=== PATIENT | male | born 1975 | race American Indian/Alaskan Native ===

== ENCOUNTER 2017-03-04 17:46 | Emergency (ER) | payer OTHER ==
[2017-03-04 17:47] VITALS: BMI 22.9
[2017-03-04 18:00] VITALS: BP 117/73; PULSE 79; RESP 18; TEMP 98; O2SAT 96
--- NOTE | 2017-03-04 18:02 | C.PDOC ---
History Of Present Illness 41 yo male, presents with left sided back pain, he has had for last 2 weeks. pain worse to left lower back, going down to left leg. pt states he does not recall trauma. pt states "similar to previous back pain", he had 1 year ago. no urinary changes, hematuria, saddle anesthesia, numbness, or other complaints. Time Seen by Provider: 03/04/17 17:54 Chief Complaint (Nursing): Back Pain Past Medical History Reviewed: Historical Data, Nursing Documentation, Vital Signs Vital Signs: Last Vital Signs Temp 98 F 03/04/17 17:48 Pulse 79 03/04/17 17:48 Resp 18 03/04/17 17:48 BP 117/73 03/04/17 17:48 Pulse Ox 96 03/04/17 18:03 Family History: States: Unknown Family Hx - Social History Hx Tobacco Use: No Hx Alcohol Use: Yes Hx Substance Use: No - Immunization History Hx Tetanus Toxoid Vaccination: No Hx Influenza Vaccination: No Hx Pneumococcal Vaccination: No Review Of Systems Musculoskeletal: Positive for: Back Pain Physical Exam - Physical Exam Appears: Well, No Acute Distress Skin: Normal Color, Warm, Dry Eye(s): bilateral: Normal Inspection, PERRL, EOMI Nose: Normal Throat: Normal Neck: Normal Cardiovascular: Rhythm Regular Respiratory: Normal Breath Sounds Gastrointestinal/Abdominal: Normal Exam, Soft, No Tenderness, No Guarding, No Rebound Back: Normal Inspection, No CVA Tenderness, No Vertebral Tenderness, Paraspinal Tenderness, Straight Leg Raising ((+)left sided) Extremity: Normal ROM ED Course And Treatment O2 Sat by Pulse Oximetry: 96 Medical Decision Making Medical Decision Making: suspected sciatica/msk pain. no saddle anesthesia, no h/o ofurinary symptoms, bowel incontinence. 630: ua neg for infection/blood (stone less likely), xr neg as read by me. advise outpt f/u and return precautions Disposition - Disposition Referrals: [facility] [Outside] [facility] [Outside] José Miguel Samuel MD [Non-Staff] - Disposition: HOME/ ROUTINE Disposition Time: 18:32 Condition: STABLE Additional Instructions: please follow up with your doctor/specialist. return to er with worsening symptoms or concerns. Prescriptions: Cyclobenzaprine [Cyclobenzaprine HCl] 10 mg PO TID PRN #21 tab PRN Reason: Muscle Spasm Naproxen [Naprosyn] 500 mg PO BID PRN #14 tablet PRN Reason: Pain, Mild (1-3) Instructions: Acute Low Back Pain (ED) Forms: [employer] ([place]) - Clinical Impression Clinical Impression: Low back pain
[2017-03-04 18:23] LABS: RBC URINE 1 /hpf (0-3); URINE BACTERIA OCC (<OCC); URINE BILIRUBIN NEGATIVE (NEGATIVE); URINE BLOOD NEGATIVE (NEGATIVE); URINE COLOR Yellow (YELLOW); URINE GLUCOSE (UA) NORMAL (Normal); URINE KETONE NEGATIVE (NEGATIVE); URINE LEUKOCYTE ESTERASE NEG Leu/uL (Negative); URINE PROTEIN 1+ mg/dL (NEGATIVE); URINE UROBILINOGEN NORMAL mg/dL (0.2-1.0); WBC URINE 1 /hpf (0-5)
--- NOTE | 2017-03-05 08:14 | RAD ---
PROCEDURE: Radiographs of the Lumbar Spine. HISTORY: back pain COMPARISON: No prior. FINDINGS: BONES: Normal alignment. No listhesis. No fracture. DISC SPACES: Unremarkable. OTHER FINDINGS: Moderate stool retention IMPRESSION: No lumbar spine pathology noted. Incidentally noted is moderate stool retention
== END 2017-03-04 18:44 | disposition home or self-care (01) ==
LOC: C.ER 17:46
DX: M54.5 Low back pain (principal)
CPT/HCPCS: 72100; 81001; 96372; 99284; J1885

== ENCOUNTER 2017-03-11 07:50 | Observation (INO) | payer OTHER ==
[2017-03-11 07:51] VITALS: BMI 22.9
[2017-03-11] MEDS ORDERED: diaZEpam 10 mg/2 ml Inj IVP ONE (08:38)
[2017-03-11] MEDS ORDERED: Sodium Chloride 0.9% 500 ML IV ONE (08:38)
[2017-03-11] MEDS ORDERED: Sodium Chloride 0.9% 1,000 ML ONE (08:43)
[2017-03-11] MEDS ORDERED: diaZEpam 10 mg/2 ml Inj ONE (08:44)
--- NOTE | 2017-03-11 08:47 | C.PDOC ---
History Of Present Illness 41 y/o male, with PMHx of intermittent back pain, presents to ED for re- evaluation of lower back pain for the past week. Pt states that pain is progressively getting worse, and is described as mostly left sided lower back pain radiating down to buttock and left leg. Pt admits to being seen here 1 week ago for similar symptoms and was sent home with Rx of Naproxen and Flexeril which pt has been taking without any improvement. Pt denies fall, trauma, fever, chills, abdominal pain, nausea, vomiting, diarrhea, bowel or bladder incontinence/retention, paresthesias, focal weakness, sensory deficit, gait dysfunction, hematuria or dysuria. Time Seen by Provider: 03/11/17 08:07 Chief Complaint (Nursing): Back Pain History Per: Patient History/Exam Limitations: no limitations Onset/Duration Of Symptoms: Days (1 week) Current Symptoms Are (Timing): Still Present Quality Of Discomfort: "Pain" Previous Symptoms: Back Pain. denies: Prior Injury Associated Symptoms: None. denies: Incontinence, New Weakness, New Numbness Exacerbating Factor(s): Nothing Recent travel outside of the [place]: No Additional History Per: Patient Past Medical History Reviewed: Historical Data, Nursing Documentation, Vital Signs Vital Signs: Last Vital Signs Temp 97.5 F L 03/11/17 12:13 Pulse 64 03/11/17 12:13 Resp 18 03/11/17 12:13 BP 111/64 03/11/17 12:13 Pulse Ox 99 03/11/17 12:37 Family History: States: Unknown Family Hx - Social History Hx Tobacco Use: No Hx Alcohol Use: Yes Hx Substance Use: No - Immunization History Hx Tetanus Toxoid Vaccination: No Hx Influenza Vaccination: No Hx Pneumococcal Vaccination: No Review Of Systems Except As Marked, All Systems Reviewed And Found Negative. Constitutional: Negative for: Fever, Chills Cardiovascular: Negative for: Chest Pain, Palpitations Respiratory: Negative for: Shortness of Breath Gastrointestinal: Negative for: Nausea, Vomiting, Abdominal Pain Genitourinary: Negative for: Dysuria, Frequency, Hematuria Musculoskeletal: Positive for: Back Pain, Leg Pain (left) Neurological: Negative for: Weakness, Numbness Physical Exam - Physical Exam Appears: Non-toxic, No Acute Distress Skin: Normal Color, Warm, Dry Head: Atraumatic, Normacephalic Eye(s): bilateral: Normal Inspection Oral Mucosa: Moist Neck: Normal ROM, Supple Chest: Symmetrical Cardiovascular: Rhythm Regular, No Murmur Respiratory: Normal Breath Sounds, No Accessory Muscle Use, No Rales, No Rhonchi , No Wheezing Gastrointestinal/Abdominal: Soft, No Tenderness Back: No CVA Tenderness, No Vertebral Tenderness, Paraspinal Tenderness (left lumbar) Extremity: Normal ROM, No Tenderness, No Deformity Extremity: Bilateral: Atraumatic, Normal Color And Temperature, Normal ROM Neurological/Psych: Oriented x3, Normal Speech, Normal Cognition ED Course And Treatment O2 Sat by Pulse Oximetry: 99 (on RA) Pulse Ox Interpretation: Normal - CT Scan/US Lumbar spine MRI Other Rad Studies (CT/US): Read By Radiologist, Radiology Report Reviewed CT/US Interpretation: MRI lumbar spine. History: Left lumbar radiculopathy. Comparison: None available. Technique: Multi-echo multiplanar sequences were performed through the lumbar spine without the use of intravenous contrast. Findings: Heterogeneity of the visualized marrow with patchy decreased T1 signal suggestive for hematopoietic marrow reconversion. Spine alignment is maintained. Vertebral body heights are preserved. Disc desiccation at the L4- 5 and L5-S1 levels. Conus medullaris ends at approximately the L1 vertebral body level. T12-L1: No significant disc herniation, spinal canal stenosis, or neural foraminal narrowing. L1-2: No significant disc herniation, spinal canal stenosis, or neural foraminal narrowing. L2-3: Annular tear. Small broad- based posterior disc bulge, eccentric to the left. Moderate ligamentum flavum and facet hypertrophy. Mild left-sided spinal canal stenosis. Mild left neural foraminal narrowing. L3-4: Moderate-sized broad-based posterior disc bulge. In addition, extending superiorly on the left along the posterior inferior aspect of the L3 vertebral body, contiguous with the disc, there is an ovoid focus of more focally decreased T1 signal measuring 1.2 x 0.8 x 1.1 centimeters causing compression of the left anterior thecal sac as well as extension into the left neural foramen. There is apparent involvement with the left intrathecal and possibly left exiting nerve roots at this level. This is of uncertain clinical etiology and may represent focal sequestered disc fragment versus additional etiology. Correlation with contrast-enhanced MRI may be helpful if clinically indicated to exclude additional etiology. Moderate ligamentum flavum and facet hypertrophy. Moderate left-sided spinal canal stenosis. Moderate left neural foraminal narrowing. Mild right neural foraminal narrowing. L4-5: No significant disc herniation. Mild ligamentum flavum and facet hypertrophy. Mild bilateral neural foraminal narrowing. L5-S1: Small broad-based posterior disc bulge contacting the anterior thecal sac. Mild ligamentum flavum and facet hypertrophy. Mild to moderate bilateral neural foraminal narrowing. Impression: 1. At the L3-4 level, there is a moderate- sized broad-based posterior disc bulge. In addition, extending superiorly on the left along the posterior inferior aspect of the L3 vertebral body, contiguous with the disc, there is an ovoid focus of more focally decreased T1 signal measuring 1.2 x 0.8 x 1.1 centimeters causing compression of the left anterior thecal sac as well as extension into the left neural foramen. There is apparent involvement with the left intrathecal and possibly left exiting nerve roots at this level. This is of uncertain clinical etiology and may represent focal sequestered disc fragment versus additional etiology. Correlation with contrast-enhanced MRI may be helpful if clinically indicated to exclude additional etiology such as a lesion. Moderate ligamentum flavum and facet hypertrophy. Moderate left-sided spinal canal stenosis. Moderate left neural foraminal narrowing. Mild right neural foraminal narrowing. 2. At the L2 -3 level, there is an annular tear. In addition, there is a small broad-based posterior disc bulge, eccentric to the left. Moderate ligamentum flavum and facet hypertrophy. Mild left-sided spinal canal stenosis. Mild left neural foraminal narrowing. Additional findings as above. Progress Note: Lumbar spine MRI ordered and reviewed. Pt was given Valium, Solu- Medrol, and IV fluids. On re-evaluation, patient is resting comfortably, reports improvement of back pain. No fever, no bony tenderness, no numbness, no weakness, or abdominal pain. Patient is ambulatory in the emergency department with no signs of discomfort. ED OBSERVATION Discharge: Yes Date of observation admission: 03/11/17 Time of observation admission: 08:40 - Observation admission statement Patient is being placed in observation because:: Severe lower back pain, lumbar radiculopathy - Goals of Observation Goals of observation are:: Imaging, analgesics, neuro re-check - Progress Note Progress Note: 03/11/17 Pt was initially treated with steroids, benzo, hydration with IVF. At 9:29, pt was called for imaging MRI of L-spine. Pt was sent back, unable tolerate due to severe pain. Dilaudid, Tramadol given. At 10:10, pt came back, able to complete imaging. Pt reports, mod improvement in pain. ABd: benign. Neuorlogicaly intact. At 11:58, pt resting comfortably, not in any apparent distress. Sleeping, easily arousable. Neuorlogicaly intact. At 13:35, pt reports, "feels better". Afebrile, hemodynamicaly stable. non-toxic. Ambulatory in Ed with stable gait. Abd: benign. back: (-) CVA tenderness. Neurologicaly intact. MRI reports review and c/w lumbar radiculopathy. Pt has clinical findings c/w lumbar radiculopathy. Pt advised and ref. to f/u with PMD, PM in 2-3 days for re-eval. Disposition Counseled Patient/Family Regarding: Studies Performed, Diagnosis, Need For Followup, Rx Given - Disposition Disposition: HOME/ ROUTINE Disposition Time: 13:37 Condition: STABLE - Clinical Impression Clinical Impression: Lumbar radiculopathy, acute - PA / LIFT OPERATOR / Resident Statement MD/DO has reviewed & agrees with the documentation as recorded. - Scribe Statement The provider has reviewed the documentation as recorded by the Kiibleoncio Urbina All medical record entries made by the Kristopher were at my direction and personally dictated by me. I have reviewed the chart and agree that the record accurately reflects my personal performance of the history, physical exam, medical decision making, and the department course for this patient. I have also personally directed, reviewed, and agree with the discharge instructions and disposition.
[2017-03-11] MEDS ORDERED: HYDROmorphone 1 mg/ml ISec IVP STA (09:58)
[2017-03-11] MEDS ORDERED: HYDROmorphone 1 mg/ml ISec ONE (09:59)
--- NOTE | 2017-03-11 11:12 | MRI ---
MRI lumbar spine History: Left lumbar radiculopathy. Comparison: None available. Technique: Multi-echo multiplanar sequences were performed through the lumbar spine without the use of intravenous contrast. Findings: Heterogeneity of the visualized marrow with patchy decreased T1 signal suggestive for hematopoietic marrow reconversion. Spine alignment is maintained. Vertebral body heights are preserved. Disc desiccation at the L4-5 and L5-S1 levels. Conus medullaris ends at approximately the L1 vertebral body level. T12-L1: No significant disc herniation, spinal canal stenosis, or neural foraminal narrowing. L1-2: No significant disc herniation, spinal canal stenosis, or neural foraminal narrowing. L2-3: Annular tear. Small broad-based posterior disc bulge, eccentric to the left. Moderate ligamentum flavum and facet hypertrophy. Mild left-sided spinal canal stenosis. Mild left neural foraminal narrowing. L3-4: Moderate-sized broad-based posterior disc bulge. In addition, extending superiorly on the left along the posterior inferior aspect of the L3 vertebral body, contiguous with the disc, there is an ovoid focus of more focally decreased T1 signal measuring 1.2 x 0.8 x 1.1 centimeters causing compression of the left anterior thecal sac as well as extension into the left neural foramen. There is apparent involvement with the left intrathecal and possibly left exiting nerve roots at this level. This is of uncertain clinical etiology and may represent focal sequestered disc fragment versus additional etiology. Correlation with contrast-enhanced MRI may be helpful if clinically indicated to exclude additional etiology. Moderate ligamentum flavum and facet hypertrophy. Moderate left-sided spinal canal stenosis. Moderate left neural foraminal narrowing. Mild right neural foraminal narrowing. L4-5: No significant disc herniation. Mild ligamentum flavum and facet hypertrophy. Mild bilateral neural foraminal narrowing. L5-S1: Small broad-based posterior disc bulge contacting the anterior thecal sac. Mild ligamentum flavum and facet hypertrophy. Mild to moderate bilateral neural foraminal narrowing. Impression: 1. At the L3-4 level, there is a moderate-sized broad-based posterior disc bulge. In addition, extending superiorly on the left along the posterior inferior aspect of the L3 vertebral body, contiguous with the disc, there is an ovoid focus of more focally decreased T1 signal measuring 1.2 x 0.8 x 1.1 centimeters causing compression of the left anterior thecal sac as well as extension into the left neural foramen. There is apparent involvement with the left intrathecal and possibly left exiting nerve roots at this level. This is of uncertain clinical etiology and may represent focal sequestered disc fragment versus additional etiology. Correlation with contrast-enhanced MRI may be helpful if clinically indicated to exclude additional etiology such as a lesion. Moderate ligamentum flavum and facet hypertrophy. Moderate left-sided spinal canal stenosis. Moderate left neural foraminal narrowing. Mild right neural foraminal narrowing. 2. At the L2-3 level, there is an annular tear. In addition, there is a small broad-based posterior disc bulge, eccentric to the left. Moderate ligamentum flavum and facet hypertrophy. Mild left-sided spinal canal stenosis. Mild left neural foraminal narrowing. Additional findings as above.
[2017-03-11 12:13] VITALS: BP 111/64; PULSE 64; RESP 18; TEMP 97.5
[2017-03-11 12:24] VITALS: O2SAT 99
== END 2017-03-11 13:20 | disposition home or self-care (01) ==
LOC: C.ER 07:50 → C.9OBSV 08:40
PROVIDERS: ADMIT Emergency Medicine; ATTEND Emergency Medicine
DX: M54.16 Radiculopathy, lumbar region (principal)
CPT/HCPCS: 72148; 96361; 96374; 96375; 99285; G0378; J1170; J1885; J2930; J3360; J7040

== ENCOUNTER 2017-03-12 14:01 | Emergency (ER) | payer OTHER ==
[2017-03-12 14:02] VITALS: BMI 22.9
--- NOTE | 2017-03-12 14:34 | C.PDOC ---
History Of Present Illness NEW ONSET INTRACT HICCUPS SINCE YEST. NO PAIN, PRIOR HO SAME. PS UNABLE TO SLEEP DUE TO HICCUPS. CO RECUR L SCIATICA LAST NIGHT. HO PRIOR SIM SX. +MRI 03/11. 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 RADIATION POST THIGH. EXAM MILD DIST NONTOXIC ACTIVE HICCUPS NARD ABD NEG BACK LIMITED ROM DUE TO PAIN NEURO INTACT Time Seen by Provider: 03/12/17 14:25 Chief Complaint (Nursing): Back Pain History Per: Patient History/Exam Limitations: no limitations Onset/Duration Of Symptoms: Days Current Symptoms Are (Timing): Still Present Reports Recently: Seen In ED Recent travel outside of the [place]: No Past Medical History Reviewed: Historical Data, Nursing Documentation, Vital Signs Vital Signs: Last Vital Signs Temp 98.4 F 03/12/17 14:03 Pulse 84 03/12/17 14:03 Resp 20 03/12/17 14:03 BP Pulse Ox 99 03/12/17 16:09 - Medical History PMH: No Chronic Diseases Family History: States: Unknown Family Hx - Social History Hx Tobacco Use: No Hx Alcohol Use: Yes Hx Substance Use: No - Immunization History Hx Tetanus Toxoid Vaccination: No Hx Influenza Vaccination: No Hx Pneumococcal Vaccination: No Review Of Systems Except As Marked, All Systems Reviewed And Found Negative. Constitutional: Negative for: Fever, Chills Cardiovascular: Negative for: Chest Pain Respiratory: Negative for: Cough, Shortness of Breath, Wheezing Musculoskeletal: Positive for: Back Pain Skin: Negative for: Rash Neurological: Negative for: Weakness, Numbness, Dizziness Physical Exam - Physical Exam Appears: Non-toxic, Other (MILD DISTRESS; ACTIVE HICCUPS NARD) Skin: Normal Color, Warm, Dry Head: Atraumatic, Normacephalic Oral Mucosa: Moist Neck: Normal ROM, No Midline Cervical Tenderness, No Paracervical Tenderness, Supple Chest: Symmetrical, No Tenderness Cardiovascular: Rhythm Regular Respiratory: Normal Breath Sounds, No Rales, No Rhonchi, No Wheezing Gastrointestinal/Abdominal: Soft, No Tenderness, No Guarding, No Rebound Back: Decreased ROM (DUE TO PAIN ) Extremity: Normal ROM, Capillary Refill (< 2 SEC.) Neurological/Psych: Other (NEURO INTACT) ED Course And Treatment O2 Sat by Pulse Oximetry: 99 (RA) Pulse Ox Interpretation: Normal Progress - Re-Evaluation Re-evaluation Note: 03/12/17 14:37 THORAZINE, PAIN MEDICATIONS GIVEN 03/12/17 16:09 HICCUPS RESOLVED. CO DIZZYNESS. PROBABLE MED EFFECT. WILL CONT OBS 03/12/17 17:43 FEELS BETTER. STEADY GAIT. BACK PAIN IMPROVED - Data Reviewed Data Reviewed: Old records Disposition Counseled Patient/Family Regarding: Diagnosis, Need For Followup, Rx Given - Disposition Referrals: YOUR,PMD [Other] Disposition: HOME/ ROUTINE Disposition Time: 17:44 Condition: IMPROVED Prescriptions: chlorproMAZINE [Thorazine] 25 mg PO TID #21 tab Instructions: Hiccups (ED) Forms: [employer] ([place]ian), Work Excuse - Clinical Impression Clinical Impression: Sciatica, Intractable hiccups - Scribe Statement The provider has reviewed the documentation as recorded by the Scribleoncio Espinal All medical record entries made by the Kiibleoncio were at my direction and personally dictated by me. I have reviewed the chart and agree that the record accurately reflects my personal performance of the history, physical exam, medical decision making, and the department course for this patient. I have also personally directed, reviewed, and agree with the discharge instructions and disposition.
[2017-03-12] MEDS ORDERED: HYDROmorphone 1 mg/ml ISec IM STA (14:36)
[2017-03-12 18:20] VITALS: BP 113/64; PULSE 83; RESP 18; TEMP 97.5; O2SAT 96
== END 2017-03-12 18:40 | disposition home or self-care (01) ==
LOC: C.ER 14:01
DX: M54.32 Sciatica, left side (principal); R06.6 Hiccough
CPT/HCPCS: 96372; 99283; J1170; J1885; J3230

== ENCOUNTER 2017-03-19 07:10 | Observation (INO) | payer OTHER ==
[2017-03-19 07:10] VITALS: BMI 22.9
--- NOTE | 2017-03-19 07:50 | C.PDOC ---
History Of Present Illness Patient is 41 year old male presents to ED for evaluation of left side back pain radiating down to left leg. Pt reports having history of similar symptoms for the last 3 weeks. Notes taking Valium, Tramadol, and Naprosyn without improvement. Otherwise, denies any trauma, injury, chest pain, shortness of breath, headache, fever, chills, nausea, vomiting, diarrhea, abdominal pain, bowel or bladder incontinence/retention, saddle anesthesia, paresthesias, focal weakness, sensory deficit, hematuria or dysuria. Time Seen by Provider: 03/19/17 07:31 Chief Complaint (Nursing): Back Pain History Per: Patient History/Exam Limitations: no limitations Onset/Duration Of Symptoms: Days (3 weeks) Current Symptoms Are (Timing): Still Present Quality Of Discomfort: "Pain" Previous Symptoms: Back Pain. denies: Prior Injury Associated Symptoms: None. denies: Incontinence, New Weakness, New Numbness Exacerbating Factor(s): Nothing Recent travel outside of the [place]: No Additional History Per: Patient Past Medical History Reviewed: Historical Data, Nursing Documentation, Vital Signs Vital Signs: Last Vital Signs Temp 97.8 F 03/19/17 12:35 Pulse 95 H 03/19/17 12:35 Resp 16 03/19/17 12:35 BP 122/72 03/19/17 12:35 Pulse Ox 99 03/19/17 13:42 Family History: States: Unknown Family Hx - Social History Hx Tobacco Use: No Hx Alcohol Use: Yes Hx Substance Use: No - Immunization History Hx Tetanus Toxoid Vaccination: No Hx Influenza Vaccination: No Hx Pneumococcal Vaccination: No Review Of Systems Except As Marked, All Systems Reviewed And Found Negative. Constitutional: Negative for: Fever, Chills Cardiovascular: Negative for: Chest Pain, Palpitations Respiratory: Negative for: Shortness of Breath Gastrointestinal: Negative for: Nausea, Vomiting, Abdominal Pain, Diarrhea Genitourinary: Negative for: Dysuria, Frequency, Incontinence, Hematuria Musculoskeletal: Positive for: Back Pain (left side), Leg Pain (left). Negative for: Neck Pain Skin: Negative for: Rash, Bruising Neurological: Negative for: Weakness, Numbness, Headache, Dizziness Physical Exam - Physical Exam Appears: Non-toxic, Other (uncomfortable) Skin: Normal Color, Warm, Dry, No Rash Head: Atraumatic, Normacephalic Eye(s): bilateral: Normal Inspection, EOMI Nose: Normal Oral Mucosa: Moist Neck: Normal ROM, Supple Chest: Symmetrical Cardiovascular: Rhythm Regular, No Murmur Respiratory: Normal Breath Sounds, No Rales, No Rhonchi, No Wheezing Gastrointestinal/Abdominal: Soft, No Tenderness Back: No CVA Tenderness, Vertebral Tenderness (lower lumbar), Paraspinal Tenderness (left side paraspinal), No Straight Leg Raising (unable to asses) Extremity: Normal ROM, Tenderness (left buttock), No Pedal Edema, Capillary Refill (<2 sec. ), No Deformity Neurological/Psych: Oriented x3, Normal Speech, Normal Motor, Normal Sensation Gait: Unable To Assess ED Course And Treatment - Laboratory Results Result Diagrams: 03/19/17 08:30 03/19/17 08:30 O2 Sat by Pulse Oximetry: 99 (on RA) Pulse Ox Interpretation: Normal - CT Scan/US Lumbar spinal MRI Other Rad Studies (CT/US): Read By Radiologist, Radiology Report Reviewed CT/US Interpretation: Accession No. : [id number]. Patient Name / ID : KARIN FRY / [id number]. Exam Date : 03/19/2017 09:20:07 ( Approved ). Study Comment : Sex / Age : M / 41Y. Creator : Frank Stearns MD. Dictator : Frank Stearns MD. Plant Health Manager : Manager Business Systems : Frank Stearns MD. Approver2 : Report Date : 03/19/2017 11:05:06. My Comment : . PROCEDURE: MR LUMBAR SPINE WITH AND WITHOUT CONTRAST. HISTORY: pain, r/o mass. COMPARISON: Lumbar spine MRI without contrast dated 03/11/2017. TECHNIQUE: Multiecho multiplanar sequences were performed through the lumbar spine with and without the use of intravenous contrast. Lumbar curvature is stable and unremarkable. No interval fracture spondylolisthesis or suspicious marrow signal change identified throughout. Vertebral body heights remain normal as well as disc interspaces and the conus medullaris remains normal. FINDINGS: T12-L1: No disc herniation, spinal canal stenosis or neural foraminal narrowing. L1-2: No disc herniation, spinal canal stenosis or neural foraminal narrowing. L2-3: An annular tear is reiterated toward the left with a mild generalized disc bulge and likely left paracentral disc protrusion encroaching the left lateral recess and proximal left neural foramen. The right neural foramen is unremarkable appearing. L3-4: A moderate generalized disc bulge is appreciated with a left lateral disc herniation extending into the left neural foramen and extruding into the anterior epidural space once again not appearing simply changed in size. Although the epidural space enhances surrounding this disc including the extruded fragment, there is no enhancement within the disc itself intrinsically. No definite mass is seen related to this epidural finding. The disc herniation is better defined extending into the proximal segment of the left neural foramen impinging the exiting left L3 nerve root which appears somewhat edematous. Severe left neural foraminal stenosis is again evident. No significant right neural foraminal stenosis. Encroachment additional distending left-sided nerve roots is reiterated, located close to the more central posterior thecal sac. Overall volume of the disc herniation including the extruded segment does not appear increased or decreased at this time. L4-5: No disc herniation, spinal canal stenosis or neural foraminal narrowing. Limited facet joint degenerate changes are identified. L5-S1: No disc herniation, spinal canal stenosis or neural foraminal narrowing. Mild facet degenerate changes are appreciated symmetrically once again with minimal disc bulging here. OTHER FINDINGS: None. IMPRESSION: 1. A moderate generalized disc bulge is appreciated L3-4 with a left lateral disc herniation unchanged in overall size and distribution including its extruded component posterior to the mid to inferior left L3 vertebral body. The exiting left L3 nerve root remains impinged and is likely edematous with severe left neural foraminal stenosis appreciated at the proximal segment of the foramen. No suspicious intrathecal enhancement. Epidural enhancement is normal. Moderate left central canal stenosis is stable with descending nerve roots encroached once again. 2. A stable, small disc bulge is appreciated at L2-3 with a likely small left lateral disc protrusion or asymmetric bulge encroaching the left lateral recess and proximal left neural foramen. Progress Note: Blood work ordered and reviewed. Pt was initially treated with Toradol, Valium, and Decadron inj. On re-eval, pt states that pain still persists. Pt was given Dilaudid. Case discussed with Dr. Esposito who requested lumbar spine MRI to rule out mass. Lumbar spine MRI was ordered and reviewed. Case discussed with Dr. Esposito who agrees upon plan and admisison. Disposition - Disposition Disposition: HOSPITALIZED Disposition Time: 11:00 Condition: STABLE - Clinical Impression Clinical Impression: Intractable back pain, Lumbar nerve root impingement - PA / OUTCOMES ANALYST / Resident Statement MD/DO has reviewed & agrees with the documentation as recorded. - Scribe Statement The provider has reviewed the documentation as recorded by the Kiibe Jaleesa Urbina All medical record entries made by the Kristopher were at my direction and personally dictated by me. I have reviewed the chart and agree that the record accurately reflects my personal performance of the history, physical exam, medical decision making, and the department course for this patient. I have also personally directed, reviewed, and agree with the discharge instructions and disposition.
[2017-03-19] MEDS ORDERED: Dexamethasone 4 mg/1 ml ONE (08:12)
[2017-03-19 08:37] LABS: BASO % 0.5 % (0.0-2.0); EOS # 0.1 K/uL (0.0-0.7); EOS % 1.9 % (0.0-4.0); HEMATOCRIT 46.5 % (35.0-51.0); LYMPH # 1.4 K/uL (1.0-4.3); LYMPH % 20.7 % (20.0-40.0); MEAN CELL VOLUME 82.7 fL (80.0-94.0); MEAN CORPUSCULAR HEMOGLOBIN 28.7 pg (27.0-31.0); MEAN CORPUSCULAR HGB CONC 34.7 g/dL (33.0-37.0); MEAN PLATELET VOLUME 7.9 fL (7.2-11.7); MONO # 0.6 K/uL (0.0-0.8); MONO % 9.3 % (0.0-10.0); NRBC % 0.1 % (0.0-2.0); RED CELL DISTRIBUTION WIDTH 14.2 % (11.5-14.5); WHITE BLOOD COUNT 6.8 K/uL (4.8-10.8)
[2017-03-19 08:49] LABS: CHLORIDE 101 mmol/L (98-107); POTASSIUM 3.9 mmol/L (3.6-5.2); SODIUM 141 mmol/L (132-148)
[2017-03-19 08:51] LABS: ALB/GLOB RATIO 1.2 (1.0-2.1); ALKALINE PHOSPHATASE 39 U/L (38-126); AST/SGOT 27 U/L (17-59); BILIRUBIN,TOTAL 0.7 mg/dL (0.2-1.3); CARBON DIOXIDE 29 mmol/L (22-30); GFR AFRICAN-AMERICAN > 60; TOTAL PROTEIN 7.6 g/dL (6.3-8.3)
[2017-03-19 08:52] LABS: ALT/SGPT 35 U/L (21-72); BLOOD UREA NITROGEN 28 mg/dL (9-20); CALCIUM 8.8 mg/dl (8.6-10.4); GLUCOSE,RANDOM 106 mg/dL (75-110)
[2017-03-19] MEDS ORDERED: Gadodiamide 287 MG/ML VIAL (15ML) IV ONE (09:50)
--- NOTE | 2017-03-19 11:06 | MRI ---
PROCEDURE: MR LUMBAR SPINE WITH AND WITHOUT CONTRAST HISTORY: pain, r/o mass COMPARISON: Lumbar spine MRI without contrast dated 03/11/2017. TECHNIQUE: Multiecho multiplanar sequences were performed through the lumbar spine with and without the use of intravenous contrast. Lumbar curvature is stable and unremarkable. No interval fracture spondylolisthesis or suspicious marrow signal change identified throughout. Vertebral body heights remain normal as well as disc interspaces and the conus medullaris remains normal. FINDINGS: T12-L1: No disc herniation, spinal canal stenosis or neural foraminal narrowing. L1-2: No disc herniation, spinal canal stenosis or neural foraminal narrowing. L2-3: An annular tear is reiterated toward the left with a mild generalized disc bulge and likely left paracentral disc protrusion encroaching the left lateral recess and proximal left neural foramen. The right neural foramen is unremarkable appearing. L3-4: A moderate generalized disc bulge is appreciated with a left lateral disc herniation extending into the left neural foramen and extruding into the anterior epidural space once again not appearing simply changed in size. Although the epidural space enhances surrounding this disc including the extruded fragment, there is no enhancement within the disc itself intrinsically. No definite mass is seen related to this epidural finding. The disc herniation is better defined extending into the proximal segment of the left neural foramen impinging the exiting left L3 nerve root which appears somewhat edematous. Severe left neural foraminal stenosis is again evident. No significant right neural foraminal stenosis. Encroachment additional distending left-sided nerve roots is reiterated, located close to the more central posterior thecal sac. Overall volume of the disc herniation including the extruded segment does not appear increased or decreased at this time. L4-5: No disc herniation, spinal canal stenosis or neural foraminal narrowing. Limited facet joint degenerate changes are identified. L5-S1: No disc herniation, spinal canal stenosis or neural foraminal narrowing. Mild facet degenerate changes are appreciated symmetrically once again with minimal disc bulging here. OTHER FINDINGS: None. IMPRESSION: 1. A moderate generalized disc bulge is appreciated L3-4 with a left lateral disc herniation unchanged in overall size and distribution including its extruded component posterior to the mid to inferior left L3 vertebral body. The exiting left L3 nerve root remains impinged and is likely edematous with severe left neural foraminal stenosis appreciated at the proximal segment of the foramen. No suspicious intrathecal enhancement. Epidural enhancement is normal. Moderate left central canal stenosis is stable with descending nerve roots encroached once again. 2. A stable, small disc bulge is appreciated at L2-3 with a likely small left lateral disc protrusion or asymmetric bulge encroaching the left lateral recess and proximal left neural foramen.
[2017-03-19] MEDS ORDERED: HYDROmorphone 0.5 mg/0.5 ml ISec IVP STA (12:13)
--- NOTE | 2017-03-19 15:37 | CP.PCM.HP ---
History of Present Illness - History of Present Illness History of Present Illness: Patient is a 41 yo gentleman with no PMH. In the past 3 weeks he started to c/ o a severe, progressive and debilitating back pain. He was seen in ER and DC an MRI was performed and the recommendation was to repeat a contrast MRI as OP. Patient was scheduled for the test when his condition became worse. He poorly responded to multiple drug (analgesic) rx.At present he is not able to ambulate , with an exacerbation of the lumbago while he standing. An MRI reveled a severe nerve compression with edema. Present on Admission - Present on Admission Any Indicators Present on Admission: No Review of Systems - Constitutional Constitutional: As Per HPI - EENT Eyes: As Per HPI - Cardiovascular Cardiovascular: As Per HPI - Respiratory Respiratory: As Per HPI - Gastrointestinal Gastrointestinal: As Per HPI - Integumentary Integumentary: As Per HPI - Neurological Neurological: Abnormal Gait - Psychiatric Psychiatric: As Per HPI Past Patient History - Past Social History Smoking Status: Never Smoked - PSYCHIATRIC Hx Substance Use: No - SURGICAL HISTORY Hx Surgeries: No - ANESTHESIA Hx Anesthesia: No Hx Anesthesia Reactions: No Meds Allergies/Adverse Reactions: Allergies Allergy/AdvReac Type Severity Reaction Status Date / Time Penicillins Allergy Intermediate ITCHING Verified 03/12/17 14:07 acetaminophen Allergy Mild Verified 03/12/17 14:07 oxycodone Allergy Mild Verified 03/12/17 14:07 Physical Exam - Constitutional Appears: In Acute Distress - Head Exam Head Exam: ATRAUMATIC, NORMAL INSPECTION, NORMOCEPHALIC - Eye Exam Eye Exam: Normal appearance - ENT Exam ENT Exam: Mucous Membranes Moist - Respiratory Exam Respiratory Exam: Clear to Auscultation Bilateral - Cardiovascular Exam Cardiovascular Exam: REGULAR RHYTHM - GI/Abdominal Exam GI & Abdominal Exam: Normal Bowel Sounds - Extremities Exam Additional comments: +RLT LT - Neurological Exam Neurological exam: Abnormal Gait Additional comments: Patient not able to ambulate. Results - Vital Signs Recent Vital Signs: Last Vital Signs Temp 97.8 F 03/19/17 12:35 Pulse 88 03/19/17 15:11 Resp 18 03/19/17 15:11 BP 144/71 03/19/17 15:11 Pulse Ox 99 03/19/17 15:11 - Labs Result Diagrams: 03/19/17 08:30 03/19/17 08:30 Labs: Laboratory Results - last 24 hr 03/19/17 03/19/17 08:30 08:30 WBC 6.8 RBC 5.62 Hgb 16.1 Hct 46.5 MCV 82.7 MCH 28.7 MCHC 34.7 RDW 14.2 Plt Count 249 MPV 7.9 Neut % (Auto) 67.6 Lymph % (Auto) 20.7 [place] % (Auto) 9.3 Eos % (Auto) 1.9 Baso % (Auto) 0.5 Neut # 4.6 Lymph # 1.4 [place] # 0.6 Eos # 0.1 Baso # 0.0 Sodium 141 Potassium 3.9 Chloride 101 Carbon Dioxide 29 Anion Gap 15 BUN 28 H Creatinine 1.0 Est GFR ( Amer) > 60 Est GFR (Non-Af Amer) > 60 Random Glucose 106 Calcium 8.8 Total Bilirubin 0.7 AST 27 ALT 35 Alkaline Phosphatase 39 Total Protein 7.6 Albumin 4.1 Globulin 3.5 Albumin/Globulin Ratio 1.2 Assessment & Plan (1) Intractable back pain Status: Acute (2) Lumbar nerve root impingement Status: Acute (3) Low back pain Status: Acute (4) Lumbar radiculopathy, acute Status: Acute - Assessment and Plan (Free Text) Plan: As per orders Will follow neuro and neurosurgeon consult.
--- NOTE | 2017-03-20 07:12 | CP.PCM.CON ---
History of Present Illness - History of Present Illness History of Present Illness: CONSULT DICTATED LEFT L3 RADIUCULOPATHY AGREES CONSERVATIVE MANAGEMENT IV STEROIDS, MUSCLE RELAXANTS AND PT Past Patient History - Past Medical History & Family History Past Medical History?: Yes - Past Social History Smoking Status: Unknown If Ever Smoked - MUSCULOSKELETAL/RHEUMATOLOGICAL Hx Falls: No - PSYCHIATRIC Hx Substance Use: No - SURGICAL HISTORY Hx Surgeries: No - ANESTHESIA Hx Anesthesia: No Hx Anesthesia Reactions: No Meds Allergies/Adverse Reactions: Allergies Allergy/AdvReac Type Severity Reaction Status Date / Time Penicillins Allergy Intermediate ITCHING Verified 03/12/17 14:07 acetaminophen Allergy Mild Verified 03/12/17 14:07 oxycodone Allergy Mild Verified 03/12/17 14:07 - Medications Medications: Current Medications Cyclobenzaprine HCl (Flexeril) 5 mg PO TID [facility] Diazepam (Valium) 5 mg PO HS [facility] Last Admin: 03/19/17 21:49 Dose: 5 mg Enoxaparin Sodium (Lovenox) 40 mg SC DAILY [facility] Ibuprofen (Motrin Tab) 600 mg PO TID [facility] Last Admin: 03/19/17 17:52 Dose: 600 mg Methylprednisolone (Solu-Medrol) 125 mg IV Q8H [facility] Stop: 03/22/17 23:59 Last Admin: 03/20/17 07:00 Dose: 125 mg Pantoprazole Sodium (Protonix Inj) 40 mg IVP DAILY [facility] Results - Vital Signs Recent Vital Signs: Last Vital Signs Temp 98.6 F 03/20/17 01:00 Pulse 71 03/20/17 01:00 Resp 20 03/20/17 01:00 BP 135/71 03/20/17 01:00 Pulse Ox 98 03/20/17 01:00 - Labs Result Diagrams: 03/19/17 08:30 03/19/17 08:30 Labs: Laboratory Results - last 24 hr 03/19/17 03/19/17 08:30 08:30 WBC 6.8 RBC 5.62 Hgb 16.1 Hct 46.5 MCV 82.7 MCH 28.7 MCHC 34.7 RDW 14.2 Plt Count 249 MPV 7.9 Neut % (Auto) 67.6 Lymph % (Auto) 20.7 [place] % (Auto) 9.3 Eos % (Auto) 1.9 Baso % (Auto) 0.5 Neut # 4.6 Lymph # 1.4 [place] # 0.6 Eos # 0.1 Baso # 0.0 Sodium 141 Potassium 3.9 Chloride 101 Carbon Dioxide 29 Anion Gap 15 BUN 28 H Creatinine 1.0 Est GFR ( Amer) > 60 Est GFR (Non-Af Amer) > 60 Random Glucose 106 Calcium 8.8 Total Bilirubin 0.7 AST 27 ALT 35 Alkaline Phosphatase 39 Total Protein 7.6 Albumin 4.1 Globulin 3.5 Albumin/Globulin Ratio 1.2
[2017-03-20] MEDS: Enoxaparin 40 mg Syringe SC SCH (11:00)
--- NOTE | 2017-03-20 11:14 | CP.PCM.CON ---
History of Present Illness - History of Present Illness History of Present Illness: SPINE CONSULT Pt seen and examined. Full consult dictated. Pt w extruded HNP L3-4 with fragment extending into L L3 foramina. Feel pt would be best served w surgical decompression by removing extruded fragment(s). Herniated disc extends behind L3 vertebral body as well. IV steroids may mask sx's temporarily, but they have risks/side effects as well, and I believe once the steroids are removed his pain will recur. Also, the sooner a nerve is decompressed the better the chance at a majano recovery. Will start PT and recheck tomorrow. Thanks. Past Patient History - Past Medical History & Family History Past Medical History?: Yes - Past Social History Smoking Status: Unknown If Ever Smoked - MUSCULOSKELETAL/RHEUMATOLOGICAL Hx Falls: No - PSYCHIATRIC Hx Substance Use: No - SURGICAL HISTORY Hx Surgeries: No - ANESTHESIA Hx Anesthesia: No Hx Anesthesia Reactions: No Meds Allergies/Adverse Reactions: Allergies Allergy/AdvReac Type Severity Reaction Status Date / Time Penicillins Allergy Intermediate ITCHING Verified 03/12/17 14:07 acetaminophen Allergy Mild Verified 03/12/17 14:07 oxycodone Allergy Mild Verified 03/12/17 14:07 - Medications Medications: Current Medications Cyclobenzaprine HCl (Flexeril) 5 mg PO TID [facility] Diazepam (Valium) 5 mg PO HS [facility] Last Admin: 03/19/17 21:49 Dose: 5 mg Enoxaparin Sodium (Lovenox) 40 mg SC DAILY [facility] Ibuprofen (Motrin Tab) 600 mg PO TID [facility] Last Admin: 03/19/17 17:52 Dose: 600 mg Methylprednisolone (Solu-Medrol) 125 mg IV Q8H [facility] Stop: 03/22/17 23:59 Last Admin: 03/20/17 07:00 Dose: 125 mg Pantoprazole Sodium (Protonix Inj) 40 mg IVP DAILY [facility] Results - Vital Signs Recent Vital Signs: Last Vital Signs Temp 98.2 F 03/20/17 08:23 Pulse 70 03/20/17 08:23 Resp 20 03/20/17 08:23 BP 123/67 03/20/17 08:23 Pulse Ox 98 03/20/17 08:23 - Labs Result Diagrams: 03/19/17 08:30 03/19/17 08:30
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
--- NOTE | 2017-03-20 11:59 | CON ---
DATE: 03/20/2017 REASON FOR CONSULTATION: Back and left leg pain. HISTORY OF PRESENT ILLNESS: The patient is a 41-year-old gentleman who states that couple of weeks ago he began to get twinges of pain in the left lower back without any antecedent trauma. However, subsequent to that, he began to get sharp pain radiating to the front of his left thigh. He got to the point that he could not stand or walk at all. If he went to the bathroom, he would have to sit to urinate. If he just sat or lay down, he would be okay, but again he could not stand up to function. He came to the emergency room yesterday and was admitted. An MRI was done of the lumbar spine as well. Evidently, he was started on intravenous steroids and states today he is feeling a little better. However, he has only been out of bed once early this morning just for a very brief time just to see if he could stand. He denies any loss of bowel or bladder control. He has not noticed any increase in his pain with coughing or sneezing. PAST MEDICAL HISTORY: He denies any significant past medical history. MEDICATIONS: Not on any prescription medications. ALLERGIES: STATES HE HAS AN ALLERGY TO PERCOCET THAT HE RECEIVED IT AFTER HAVING WISDOM TEETH PULLED IN THE PAST AND BECAME VERY ITCHY THROUGHOUT HIS BODY. PHYSICAL EXAMINATION: He is recumbent in bed at the present time. He states his sensation is intact to light touch throughout both lower extremities. He has good motor strength in both lower extremities. He states he is able to lift the left leg up off the bed, although seems to be slightly weaker than the right. However, he states he could do that at all before without getting severe pain. No clonus or Babinski present. He has good distal pulses. LABORATORY DATA: We reviewed the MRI and I reviewed it with the patient as well. He has a left-sided extruded herniated disk at L3-L4. The fragment goes up behind the vertebral body out the left L3 neuroforamen. There is desiccation of the levels, but no obvious vertebral body or thecal sac abnormalities otherwise. IMPRESSION: Extruded herniated disk, left L3-L4. Certainly, this goes along with his complaints of pain radiating down the anterior left thigh in terms of the L3 root being pressed. The problem with the extruded fragment is, that will sit there and there is no way of manipulating or doing anything that is going to suck that all the way down from behind the vertebral body and out of the foramen back into the confinements of the disk. I explained that in general, the patient with this condition tend to be the most symptomatic and tend to get the best relief from surgically decompressing everything. I explained also that while the intravenous steroids may make him feel better temporarily and they have significant side effects as well and once he tapers from the steroids, my concern is that his symptoms are just going to bounce back again and we are going to be right back where we started. Also the longer the significant pressure is on the nerve, the more chance it has of becoming damaged and he may not get full recovery if we then decompress it at some point later down the line. I feel he understands this. I explained what the surgery would involve in terms of small incision and the surgery lasting about an hour and normally being same day type surgery. 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 He may be able to return to light duty within a month and then his full duties really depend on what he has to do and how he progresses with therapy. I explained about the use of the intravenous antibiotics preoperatively as well as spinal cord monitor and use the operating microscope. I feel his questions are answered to his satisfaction. The plan is to mobilize him with therapy today and tomorrow at least to start and see how he does. His feeling is that if he in his mind continues to improve than we will follow up him as an outpatient. However if, once he starts to get around, his symptoms recur then we should plan on surgically decompressing this, possibly Saturday morning. He understands this and we will proceed with our plan and I will follow him tomorrow and see how he is doing. Thank you for allowing me to participate in the care of your patient. Austin Rivera MD DENAE
[2017-03-20 17:16] LABS: CHLORIDE 102 mmol/L (98-107)
[2017-03-20 17:17] LABS: POTASSIUM 4.8 mmol/L (3.6-5.2); SODIUM 136 mmol/L (132-148)
[2017-03-20 17:19] LABS: GFR AFRICAN-AMERICAN > 60
[2017-03-20 17:20] LABS: BLOOD UREA NITROGEN 28 mg/dL (9-20); CALCIUM 8.8 mg/dl (8.6-10.4); CARBON DIOXIDE 22 mmol/L (22-30); GLUCOSE,RANDOM 167 mg/dL (75-110)
--- NOTE | 2017-03-20 19:02 | CP.PCM.PN ---
Subjective - Date & Time of Evaluation Date of Evaluation: 03/20/17 Time of Evaluation: 19:06 - Subjective Subjective: Patient still in pain with minimal movements. Objective - Vital Signs/Intake and Output Vital Signs (last 24 hours): Temp Pulse Resp BP Pulse Ox 98.2 F 115 H 20 123/63 95 03/20/17 16:00 03/20/17 16:00 03/20/17 16:00 03/20/17 16:00 03/20/17 16:00 Intake and Output: 03/20/17 03/20/17 11:59 23:59 Intake Total 240 360 Output Total 500 Balance 240 -140 - Medications Medications: Current Medications Cyclobenzaprine HCl (Flexeril) 5 mg PO TID [facility] Last Admin: 03/20/17 17:13 Dose: 5 mg Diazepam (Valium) 5 mg PO HS [facility] Last Admin: 03/19/17 21:49 Dose: 5 mg Enoxaparin Sodium (Lovenox) 40 mg SC DAILY [facility] Last Admin: 03/20/17 11:00 Dose: 40 mg Ibuprofen (Motrin Tab) 600 mg PO TID [facility] Last Admin: 03/20/17 17:13 Dose: 600 mg Methylprednisolone (Solu-Medrol) 60 mg IV Q8H [facility] Stop: 03/22/17 14:31 Last Admin: 03/20/17 14:46 Dose: 60 mg Pantoprazole Sodium (Protonix Inj) 40 mg IVP DAILY [facility] Last Admin: 03/20/17 11:00 Dose: 40 mg - Labs Labs: 03/19/17 08:30 03/20/17 17:01 - Constitutional Appears: Non-toxic - Head Exam Head Exam: ATRAUMATIC, NORMAL INSPECTION, NORMOCEPHALIC - Eye Exam Eye Exam: Normal appearance - ENT Exam ENT Exam: Mucous Membranes Moist - Neck Exam Neck Exam: Full ROM - Cardiovascular Exam Cardiovascular Exam: REGULAR RHYTHM, +S1, +S2 - GI/Abdominal Exam GI & Abdominal Exam: Soft, Normal Bowel Sounds - Neurological Exam Neurological Exam: Alert, Awake, CN II-XII Intact Additional comments: +srl Assessment and Plan (1) Intractable back pain Status: Acute (2) Lumbar nerve root impingement Status: Acute (3) Low back pain Status: Acute (4) Lumbar radiculopathy, acute Status: Acute - Assessment and Plan (Free Text) Plan: Continue iv steroid for PT and TCU
[2017-03-21 09:24] VITALS: BP 107/58; PULSE 75; RESP 21; TEMP 97.4; O2SAT 98
--- NOTE | 2017-03-21 09:27 | PN ---
DATE: 03/21/2017 NEUROLOGICAL PROBLEM: Left L3 radiculopathy. SUBJECTIVE: The patient has been getting pulsing dose of steroids to decrease inflammatory findings. The patient claims that more than 75% of pain has improved. He could able to walk with a little discomfort. The patient has remarkably improved. PHYSICAL EXAMINATION: Unchanged. RECOMMENDATION: Continue steroids as recommended until tomorrow. When medically stable, the patient can be discharged and should have a followup visit as an outpatient. Mike Rivas MD
[2017-03-21] MEDS: Enoxaparin 40 mg Syringe SC SCH (09:36)
--- NOTE | 2017-03-21 12:02 | CP.PCM.DIS ---
Provider - Provider Date of Admission: 03/19/17 11:43 Attending physician: Justin Esposito MD Time Spent in preparation of Discharge (in minutes): 30 Diagnosis - Discharge Diagnosis (1) Intractable back pain Status: Acute (2) Lumbar nerve root impingement Status: Acute (3) Low back pain Status: Acute (4) Lumbar radiculopathy, acute Status: Acute Hospital Course - Lab Results Lab Results: Most Recent Lab Values WBC 6.8 K/uL (4.8-10.8) 03/19/17 08:30 RBC 5.62 Mil/uL (4.40-5.90) 03/19/17 08:30 Hgb 16.1 g/dL (12.0-18.0) 03/19/17 08:30 Hct 46.5 % (35.0-51.0) 03/19/17 08:30 MCV 82.7 fL (80.0-94.0) 03/19/17 08:30 MCH 28.7 pg (27.0-31.0) 03/19/17 08:30 MCHC 34.7 g/dL (33.0-37.0) 03/19/17 08:30 RDW 14.2 % (11.5-14.5) 03/19/17 08:30 Plt Count 249 K/uL (130-400) 03/19/17 08:30 MPV 7.9 fL (7.2-11.7) 03/19/17 08:30 Neut % (Auto) 67.6 % (50.0-75.0) 03/19/17 08:30 Lymph % (Auto) 20.7 % (20.0-40.0) 03/19/17 08:30 Loving % (Auto) 9.3 % (0.0-10.0) 03/19/17 08:30 Eos % (Auto) 1.9 % (0.0-4.0) 03/19/17 08:30 Baso % (Auto) 0.5 % (0.0-2.0) 03/19/17 08:30 Neut # 4.6 K/uL (1.8-7.0) 03/19/17 08:30 Lymph # 1.4 K/uL (1.0-4.3) 03/19/17 08:30 Loving # 0.6 K/uL (0.0-0.8) 03/19/17 08:30 Eos # 0.1 K/uL (0.0-0.7) 03/19/17 08:30 Baso # 0.0 K/uL (0.0-0.2) 03/19/17 08:30 Sodium 136 mmol/L (132-148) 03/20/17 17:01 Potassium 4.8 mmol/L (3.6-5.2) 03/20/17 17:01 Chloride 102 mmol/L (98-107) 03/20/17 17:01 Carbon Dioxide 22 mmol/L (22-30) 03/20/17 17:01 Anion Gap 17 (10-20) 03/20/17 17:01 BUN 28 mg/dL (9-20) H 03/20/17 17:01 Creatinine 1.1 MG/DL (0.8-1.5) 03/20/17 17:01 Est GFR ( Amer) > 60 03/20/17 17:01 Est GFR (Non-Af Amer) > 60 03/20/17 17:01 Random Glucose 167 mg/dL (75-110) H 03/20/17 17:01 Calcium 8.8 mg/dl (8.6-10.4) 03/20/17 17:01 Total Bilirubin 0.7 mg/dL (0.2-1.3) 03/19/17 08:30 AST 27 U/L (17-59) 03/19/17 08:30 ALT 35 U/L (21-72) 03/19/17 08:30 Alkaline Phosphatase 39 U/L (38-126) 03/19/17 08:30 Total Protein 7.6 g/dL (6.3-8.3) 03/19/17 08:30 Albumin 4.1 g/dL (3.5-5.0) 03/19/17 08:30 Globulin 3.5 gm/dL (2.2-3.9) 03/19/17 08:30 Albumin/Globulin Ratio 1.2 (1.0-2.1) 03/19/17 08:30 - Hospital Course Hospital Course: Patient is a 41 yo gentleman with no PMH. In the past 3 weeks he started to c/ o a severe, progressive and debilitating back pain. He was seen in ER and DC an MRI was performed and the recommendation was to repeat a contrast MRI as OP. Patient was scheduled for the test when his condition became worse. He poorly responded to multiple drug (analgesic) rx.At present he is not able to ambulate , with an exacerbation of the lumbago while he standing. An MRI reveled a severe nerve compression with edema. Started on iv steroid and PT at present he deferred any surgical intervention. Will follow in TCU. Discharge Exam - Head Exam Head Exam: ATRAUMATIC, NORMAL INSPECTION, NORMOCEPHALIC - Eye Exam Eye Exam: EOMI, Normal appearance - Neck Exam Neck exam: Full Rom - Respiratory Exam Respiratory Exam: Clear to PA & Lateral - GI/Abdominal Exam GI & Abdominal Exam: Normal Bowel Sounds - Neurological Exam Neurological exam: Alert, CN II-XII Intact, Oriented x3 - Psychiatric Exam Psychiatric exam: Normal Affect Discharge Plan - Follow Up Plan Condition: STABLE Disposition: REHAB FACILITY/REHAB UNIT Instructions: Acute Low Back Pain (DC), Back Pain (GEN)
--- NOTE | 2017-03-21 13:48 | CP.PCM.PN ---
Subjective - Date & Time of Evaluation Date of Evaluation: 03/21/17 Time of Evaluation: 13:45 - Subjective Subjective: SPINE Pt OOB in chair. States he is feeling better. Sched to be transferred to TCU ( [facility]) today. Neuro remains intact. No radicular complaints. Plan: For rehab transfer. Card given to pt. Explained again that sx's may recur upon tapering os steroids. If so, he should contact us as soon as possible as recovery of nerve is better the earlier it is decompressed. He understands this and we will f/u as outpt. Thanks. Objective - Vital Signs/Intake and Output Vital Signs (last 24 hours): Temp Pulse Resp BP Pulse Ox 97.4 F L 75 21 107/58 L 98 03/21/17 09:22 03/21/17 09:22 03/21/17 09:22 03/21/17 09:22 03/21/17 09:22 Intake and Output: 03/21/17 03/21/17 06:59 18:59 Intake Total 300 Balance 300 - Medications Medications: Current Medications Cyclobenzaprine HCl (Flexeril) 5 mg PO TID [facility] Last Admin: 03/21/17 09:37 Dose: 5 mg Diazepam (Valium) 5 mg PO HS [facility] Last Admin: 03/20/17 22:19 Dose: 5 mg Enoxaparin Sodium (Lovenox) 40 mg SC DAILY [facility] Last Admin: 03/21/17 09:36 Dose: 40 mg Ibuprofen (Motrin Tab) 600 mg PO TID [facility] Last Admin: 03/21/17 09:36 Dose: 600 mg Methylprednisolone (Solu-Medrol) 60 mg IV Q8H [facility] Stop: 03/22/17 14:31 Last Admin: 03/21/17 05:45 Dose: 60 mg Pantoprazole Sodium (Protonix Inj) 40 mg IVP DAILY [facility] Last Admin: 03/21/17 09:36 Dose: 40 mg - Labs Labs: 03/19/17 08:30 03/20/17 17:01
== END 2017-03-21 15:30 ==
LOC: C.ER 07:10 → C.9E 11:43 → C.3T 14:55
PROVIDERS: ADMIT Internal Medicine; ATTEND Internal Medicine
DX: M51.16 Intervertebral disc disorders with radiculopathy, lumbar region (principal); G58.9 Mononeuropathy, unspecified
CPT/HCPCS: 36415; 72149; 80048; 80053; 85025; 96374; 96375; 96376; 97116; 97162; 99285; A9579; C9113; G0378; G8978; G8979; J1100; J1170; J1650; J1885; J2930; J3230

== ENCOUNTER 2018-08-31 17:18 | Emergency (ER) | payer OTHER ==
[2018-08-31 17:29] VITALS: BMI 26.6
--- NOTE | 2018-08-31 18:11 | C.PDOC ---
History Of Present Illness 42 year old male presents to ED with complaint of swelling to the base of the left side of tongue that began 3 days ago. Patient denies any other complaints. Patient denies any difficulty breathing. Time Seen by Provider: 08/31/18 17:41 Chief Complaint (Nursing): ENT Problem History Per: Patient History/Exam Limitations: None Onset/Duration Of Symptoms: Days (3) Current Symptoms Are (Timing): Still Present Quality (Mouth/Throat): Swelling Severity: None Past Medical History Reviewed: Historical Data, Nursing Documentation, Vital Signs Vital Signs: Last Vital Signs Temp 98.3 F 08/31/18 17:29 Pulse 73 08/31/18 17:29 Resp 18 08/31/18 17:35 BP 134/77 08/31/18 17:29 Pulse Ox 99 08/31/18 17:29 - Medical History PMH: Denies: HIV Surgical History: No Surg Hx - [facility] BATH/SHOWER TECHNQ TREATMENT USING ASSIST EQUIPMENT (03/21/17) DRESSING TECHNIQUES TREATMENT USING ASSIST EQUIPMENT (03/21/17) GAIT TRAINING/FUNCTIONAL AMBULATION TREATMENT (03/21/17) HOME MANAGEMENT TREATMENT (03/21/17) Family History: States: Unknown Family Hx - Social History Hx Tobacco Use: No Hx Alcohol Use: No Hx Substance Use: No - Immunization History Hx Tetanus Toxoid Vaccination: No Hx Influenza Vaccination: No Hx Pneumococcal Vaccination: No Review Of Systems Constitutional: Negative for: Fever, Chills, Weakness ENT: Positive for: Mouth Swelling (swelling to the base of the left side of the tongue) Respiratory: Negative for: Cough, Other (difficulty breathing) Skin: Negative for: Rash Neurological: Negative for: Weakness, Numbness, Dizziness Physical Exam - Physical Exam Appears: Well, No Acute Distress Skin: Normal Color, Warm, Dry Head: Atraumatic, Normacephalic Tongue: Swelling (frenulum of the left side of the tongue, mild tenderness) Throat: Normal, No Erythema, No Exudate Neck: Normal ROM, Supple Cardiovascular: Rhythm Regular Respiratory: No Accessory Muscle Use Gastrointestinal/Abdominal: Soft, No Tenderness Neurological/Psych: Oriented x3, Normal Cognition ED Course And Treatment - Laboratory Results Result Diagrams: 08/31/18 18:12 08/31/18 18:12 O2 Sat by Pulse Oximetry: 99 (in RA) Medical Decision Making Medical Decision Making: Impression: 42 year old male with swelling to the base of the left side of the tongue ?sialiolithsiaiss Plan: labs imaigng pt reassesed numerous times in nad on phone pending ct speaking full sentences pt notified of ct findings advise outpt w/u return precautions advised. [place] [address] Phone: [phone] Report Submission Date: Aug 31, 2018 9:20:13 PM EST Name: ANG FRAZIER Exam Date: Aug 31, 2018 8:53:45 PM EST Modality Type: CT Description: CT - NECK SOFT TISSUE Gender: M Laterality: Not applicable : 73 Referring Physician: Saturnino Albert (DO) EXAM: CT Neck with Intravenous Contrast. CLINICAL HISTORY: Swelling under the tongue x3days TECHNIQUE: Axial computed tomography images of the neck with intravenous contrast. Sagittal and coronal reformatted images were generated. 0.00 mGy-cm CONTRAST: With; 100MLS VISI 320 COMPARISON: None provided. FINDINGS: PHARYNX: Unremarkable appearance of the nasopharynx, oropharyx, and hypopharynx. No pharyngeal mucosal based mass lesions. LARYNX: Normal appearance of the larynx. Unremarkable epiglottis. RETROPHARYNGEAL SPACE: The retropharyngeal soft tissues appear within normal limits. SALIVARY GLANDS: Unremarkable appearance of the parotid, submandibular, and sublingual glands. Multiple borderline enlarged bilateral submental, submandibular, parotid, p osterior triangle and jugular chain lymph nodes are identified measuring up to 1.1 cm in transverse axis. THYROID: The thyroid gland is unremarkable. No nodule is evident. BONES: No aggressive appearing osseous lesion. No acute osseous abnormality. IMPRESSION: Multiple borderline enlarged bilateral submental, submandibular, parotid, posterior triangle and jugular chain lymph nodes are identified measuring up to 1.1 cm in transverse axis. Nodes are possibly reactive. Clinical correlation is recommended and consider additional evaluation with MRI. Electronically signed on Aug 31, 2018 9:20:13 PM EST by: Frank David M.D., ASHLEY Certified By ABR & CBC[employer] Fellowship Trained MRI and CT Specialist Disposition - Disposition Referrals: [facility] [Outside] [facility] AND [facility] [Outside] Darron Conner MD [Staff Provider] - Disposition: HOME/ ROUTINE Disposition Time: 19:00 Condition: STABLE Additional Instructions: follow up with your doctor and specialist. you will need further eval as an outpatient. return to any er with worsening. Instructions: Lymphadenitis Forms: [facility] (Somali) - Clinical Impression Clinical Impression: Mouth swelling, Lymphadenopathy - Scribe Statement The provider has reviewed the documentation as recorded by the Scribe (Carina Ramos) All medical record entries made by the Scribe were at my direction and personally dictated by me. I have reviewed the chart and agree that the record accurately reflects my personal performance of the history, physical exam, medical decision making, and the department course for this patient. I have also personally directed, reviewed, and agree with the discharge instructions and disposition.
[2018-08-31 18:16] LABS: BASO % 0.5 % (0.0-2.0); EOS # 0.1 K/uL (0.0-0.7); EOS % 1.4 % (0.0-4.0); HEMOGLOBIN 15.5 g/dL (12.0-18.0); LYMPH # 1.8 K/uL (1.0-4.3); LYMPH % 19.3 % (20.0-40.0); MEAN CORPUSCULAR HEMOGLOBIN 28.2 pg (27.0-31.0); MEAN CORPUSCULAR HGB CONC 33.6 g/dL (33.0-37.0); MEAN PLATELET VOLUME 7.9 fL (7.2-11.7); MONO # 0.8 K/uL (0.0-0.8); MONO % 8.4 % (0.0-10.0); NEUT # 6.5 K/uL (1.8-7.0); NEUT % 70.4 % (50.0-75.0); NRBC % 0.1 % (0.0-2.0); RBC 5.5 Mil/uL (4.40-5.90); WHITE BLOOD COUNT 9.2 K/uL (4.8-10.8)
[2018-08-31 18:23] LABS: INR 1.2; PROTHROMBIN TIME 13.1 SECONDS (9.7-12.2)
[2018-08-31 18:55] LABS: ALB/GLOB RATIO 1.4 (1.0-2.1); ALBUMIN 4.7 g/dL (3.5-5.0); ALT/SGPT 22 U/L (21-72); AST/SGOT 46 U/L (17-59); BLOOD UREA NITROGEN 17 mg/dL (9-20); CALCIUM 9.2 mg/dl (8.6-10.4); GFR NON-AFRICAN AMERICAN > 60
[2018-08-31] MEDS ORDERED: Iodixanol 320 MG/ML 100 ML BOTTLE IV ONE (19:28)
[2018-08-31 22:19] VITALS: BP 128/63; PULSE 58; RESP 18; TEMP 98.5; O2SAT 100
--- NOTE | 2018-09-01 09:06 | CT ---
Date of service: 08/31/2018 PROCEDURE: CT NECK WITH CONTRAST HISTORY: swelling base of tongue ?sialolithiasis COMPARISON: None available. TECHNIQUE: CT of the neck with intravenous contrast. Coronal and sagittal reformats generated. Intravenous contrast dose: 100 mL Visipaque 320 Radiation dose: Total exam DLP = 557.46 mGy-cm. This CT exam was performed using one or more of the following dose reduction techniques: Automated exposure control, adjustment of the mA and/or kV according to patient size, and/or use of iterative reconstruction technique. FINDINGS: NASOPHARYNX: Within normal limits. SUPRAHYOID NECK: No mass or abnormal enhancement in the oropharynx, oral cavity, parapharyngeal space and retropharyngeal space. INFRAHYOID NECK: No mass or abnormal enhancement in the larynx, hypopharynx, and supraglottic space. Vocal cords intact. MASS: None. GLANDS: There is a 9 x 5 mm ovoid stone in the left anterior submandibular (Janeen's) duct. Parotid and submandibular glands unremarkable. Normal size thyroid gland, without nodule. LYMPH NODES: There are multiple bilateral borderline enlarged submental, submandibular, parotid jugular chain and posterior triangle lymph nodes measuring up to 1.1 cm in transverse diameter. CERVICAL SPINE: No fracture or focal lesion. Within normal limits for the patient's age. VASCULAR STRUCTURES: There is normal intravascular enhancement. OTHER FINDINGS: None. IMPRESSION: 1. 9 x 5 mm ovoid stone in the left anterior submandibular (Janeen's) duct. 2. Multiple bilateral borderline enlarged submental, submandibular, parotid, jugular chain and posterior triangle lymph nodes are nonspecific and may be reactive, infectious or inflammatory in etiology. Clinical follow-up is advised. A preliminary report was provided by [facility]. The left submandibular stone was not identified on the preliminary report. The final report is tagged to the PA review folder. Important findings were discussed with the PA in the ER on 09/01/2018 at 8:55 a.m.
== END 2018-08-31 21:40 | disposition home or self-care (01) ==
LOC: C.ER 17:18
DX: R59.1 Generalized enlarged lymph nodes (principal); R22.0 Localized swelling, mass and lump, head
CPT/HCPCS: 70491; 80053; 85025; 85610; 85730; 99285; Q9967